=== PATIENT | male | born 1970 | race African-American/Black ===

== ENCOUNTER 2019-05-04 22:08 | Emergency (ER) | payer BC, MEDICAID ==
[~2019-05-04] VITALS: Ht 190.5 cm; Wt 205.3 kg
[2019-05-04] MEDS ORDERED: IBUPROFEN 200 MG TABLET ONE (22:53)
[2019-05-04] MEDS ORDERED: IBUPROFEN 800 MG TABLET PO ONE (23:00)
[2019-05-04 23:16] VITALS: BP 143/82
== END 2019-05-04 23:20 | disposition home or self-care (01) ==
LOC: ED 22:50
DX: S67.21XA Crushing injury of right hand, initial encounter (principal); X58.XXXA Exposure to other specified factors, initial encounter; Y93.89 Activity, other specified; Y92.410 Unspecified street and highway as the place of occurrence of the external cause; Y99.8 Other external cause status
CPT/HCPCS: 99283

== ENCOUNTER 2019-06-24 09:47 | Emergency (ER) | payer BC ==
[~2019-06-24] VITALS: Ht 190.5 cm; Wt 200.9 kg
[2019-06-24 10:12] VITALS: BP 144/81
== END 2019-06-24 11:58 | disposition home or self-care (01) ==
LOC: MERGE 11:52 → ED 11:52
DX: S83.91XA Sprain of unspecified site of right knee, initial encounter (principal); I10 Essential (primary) hypertension; Z87.891 Personal history of nicotine dependence; W19.XXXA Unspecified fall, initial encounter; Y93.89 Activity, other specified; Y92.009 Unspecified place in unspecified non-institutional (private) residence as the place of occurrence of the external cause; Y99.8 Other external cause status
CPT/HCPCS: 29505; 99283

== ENCOUNTER 2019-07-10 19:51 | Emergency (ER) | payer BC ==
[~2019-07-10] VITALS: Ht 190.5 cm; Wt 200.4 kg
[2019-07-10 21:26] VITALS: BP 116/76
== END 2019-07-10 21:29 | disposition home or self-care (01) ==
LOC: ED 20:34 → MERGE 20:34 → ED 21:29
DX: S70.02XA Contusion of left hip, initial encounter (principal); I10 Essential (primary) hypertension; Z87.891 Personal history of nicotine dependence; W21.11XA Struck by baseball bat, initial encounter; Y93.64 Activity, baseball; Y92.098 Other place in other non-institutional residence as the place of occurrence of the external cause; Y99.8 Other external cause status
CPT/HCPCS: 99283

== ENCOUNTER 2019-07-29 19:02 | Emergency (ER) | payer BC ==
[~2019-07-29] VITALS: Ht 190.5 cm; Wt 204.5 kg
[2019-07-29 19:08] VITALS: BP 172/87
== END 2019-07-29 20:35 | disposition home or self-care (01) ==
LOC: ED 20:19
DX: G89.11 Acute pain due to trauma (principal); M25.561 Pain in right knee; I10 Essential (primary) hypertension; Z72.9 Problem related to lifestyle, unspecified; Z75.9 Unspecified problem related to medical facilities and other health care; Y30.XXXA Falling, jumping or pushed from a high place, undetermined intent, initial encounter; Y93.89 Activity, other specified; Y92.89 Other specified places as the place of occurrence of the external cause; Y99.8 Other external cause status
CPT/HCPCS: 99283

== ENCOUNTER 2019-09-25 10:58 | Emergency (ER) | payer BC ==
[~2019-09-25] VITALS: Ht 190.5 cm; Wt 201.8 kg
[2019-09-25 11:02] VITALS: BP 168/93
[2019-09-25] MEDS ORDERED: HYDROcodone/APAP 5/325 TABLET PO ONE (11:30)
[2019-09-25] MEDS ORDERED: HYDROcodone/APAP 5/325 TABLET ONE (11:37)
[2019-09-25] MEDS ORDERED: NEOSPORIN OINT. PKT 1 PACKET ONE ×2 (11:39→12:09)
== END 2019-09-25 12:35 | disposition home or self-care (01) ==
LOC: ED 11:57
DX: S50.12XA Contusion of left forearm, initial encounter (principal); S50.02XA Contusion of left elbow, initial encounter; I10 Essential (primary) hypertension; W01.0XXA Fall on same level from slipping, tripping and stumbling without subsequent striking against object, initial encounter; Y93.89 Activity, other specified; Y92.009 Unspecified place in unspecified non-institutional (private) residence as the place of occurrence of the external cause; Y99.8 Other external cause status
CPT/HCPCS: 99283

== ENCOUNTER 2019-10-21 23:48 | Emergency (ER) | payer BC ==
[~2019-10-21] VITALS: Ht 188 cm; Wt 200.0 kg
[2019-10-22] MEDS ORDERED: DIAZEPAM 5 MG TABLET ONE (00:43)
[2019-10-22] MEDS ORDERED: IBUPROFEN 600 MG TABLET ONE (00:43)
[2019-10-22] MEDS ORDERED: HYDROcodone/APAP 5/325 TABLET ONE (00:44)
[2019-10-22 01:52] VITALS: BP 142/89
== END 2019-10-22 02:34 | disposition home or self-care (01) ==
LOC: ED 10-22 02:10
DX: S39.012A Strain of muscle, fascia and tendon of lower back, initial encounter (principal); S29.012A Strain of muscle and tendon of back wall of thorax, initial encounter; I10 Essential (primary) hypertension; X58.XXXA Exposure to other specified factors, initial encounter; Y93.89 Activity, other specified; Y92.89 Other specified places as the place of occurrence of the external cause; Y99.8 Other external cause status
CPT/HCPCS: 72128; 72131; 99284

== ENCOUNTER 2019-11-03 23:23 | Emergency (ER) | payer BC ==
[~2019-11-03] VITALS: Ht 190.5 cm; Wt 198.1 kg
[2019-11-03 23:25] VITALS: BP 148/85
[2019-11-04] MEDS ORDERED: IBUPROFEN 600 MG TABLET ONE
[2019-11-04] MEDS ORDERED: IBUPROFEN 200 MG TABLET PO ONE
== END 2019-11-04 00:06 | disposition home or self-care (01) ==
LOC: ED 23:58
DX: S20.211A Contusion of right front wall of thorax, initial encounter (principal); I10 Essential (primary) hypertension; Z87.891 Personal history of nicotine dependence; X58.XXXA Exposure to other specified factors, initial encounter; Y93.89 Activity, other specified; Y92.009 Unspecified place in unspecified non-institutional (private) residence as the place of occurrence of the external cause; Y99.8 Other external cause status
CPT/HCPCS: 99282

== ENCOUNTER 2019-11-08 23:40 | Emergency (ER) | payer BC ==
[~2019-11-08] VITALS: Ht 190.5 cm; Wt 199.3 kg
[2019-11-08 23:43] VITALS: BP 173/100
== END 2019-11-09 01:13 | disposition home or self-care (01) ==
LOC: ED 23:59
DX: S20.212A Contusion of left front wall of thorax, initial encounter (principal); I10 Essential (primary) hypertension; M19.90 Unspecified osteoarthritis, unspecified site; Z72.9 Problem related to lifestyle, unspecified; X58.XXXA Exposure to other specified factors, initial encounter; Y93.89 Activity, other specified; Y92.89 Other specified places as the place of occurrence of the external cause; Y99.8 Other external cause status
CPT/HCPCS: 99283

== ENCOUNTER 2019-11-28 20:54 | Emergency (ER) | payer BC ==
[~2019-11-28] VITALS: Ht 190.5 cm; Wt 199.3 kg
[2019-11-28 20:55] VITALS: BP 159/96
== END 2019-11-28 21:28 | disposition home or self-care (01) ==
LOC: ED 21:03
DX: S80.01XA Contusion of right knee, initial encounter (principal); E66.9 Obesity, unspecified; I10 Essential (primary) hypertension; Z72.9 Problem related to lifestyle, unspecified; Z72.89 Other problems related to lifestyle; X50.1XXA Overexertion from prolonged static or awkward postures, initial encounter; Y93.89 Activity, other specified; Y92.098 Other place in other non-institutional residence as the place of occurrence of the external cause; Y99.8 Other external cause status
CPT/HCPCS: 99281

== ENCOUNTER 2019-12-04 03:54 | Emergency (ER) | payer BC, OTHER ==
[~2019-12-04] VITALS: Ht 190.5 cm; Wt 198.7 kg
--- NOTE | 2019-12-04 04:16 | NUR ---
ERP at bedside to eval. Pt c/o glass in R heel. No obvious FB noted to heel.
--- NOTE | 2019-12-04 04:51 | NUR ---
Pt sleeping on elo
--- NOTE | 2019-12-04 05:47 | NUR ---
Pt alert and sitting up on gurney. Pt declines needs at this time.
[2019-12-04 06:01] VITALS: BP 138/88
== END 2019-12-04 06:02 | disposition home or self-care (01) ==
LOC: ED 04:07
DX: M79.671 Pain in right foot (principal); I10 Essential (primary) hypertension; Z87.891 Personal history of nicotine dependence
CPT/HCPCS: 99283

== ENCOUNTER 2019-12-12 14:44 | Emergency (ER) | payer OTHER ==
[~2019-12-12] VITALS: Ht 190.5 cm; Wt 199.4 kg
[2019-12-12 14:51] VITALS: BP 139/72
[2019-12-12] MEDS ORDERED: KETOROLAC 30 MG/1 ML IM ONE (15:30)
[2019-12-12] MEDS ORDERED: OXYcodone/APAP 5/325MG TABLET PO ONE (15:30)
[2019-12-12] MEDS ORDERED: KETOROLAC 30 MG/1 ML ONE (15:33)
[2019-12-12] MEDS ORDERED: OXYcodone/APAP 5/325MG TABLET ONE (15:33)
== END 2019-12-12 15:58 | disposition home or self-care (01) ==
LOC: ED 15:50
DX: S70.02XA Contusion of left hip, initial encounter (principal); I10 Essential (primary) hypertension; Z87.891 Personal history of nicotine dependence; X58.XXXA Exposure to other specified factors, initial encounter; Y93.89 Activity, other specified; Y92.009 Unspecified place in unspecified non-institutional (private) residence as the place of occurrence of the external cause; Y99.8 Other external cause status
CPT/HCPCS: 99283

== ENCOUNTER 2019-12-21 11:21 | Emergency (ER) | payer MEDICAID, OTHER ==
[~2019-12-21] VITALS: Ht 190.5 cm; Wt 189.3 kg
[2019-12-21 11:27] VITALS: BP 147/62
== END 2019-12-21 12:22 | disposition home or self-care (01) ==
LOC: ED 12:12
DX: S60.222A Contusion of left hand, initial encounter (principal); X58.XXXA Exposure to other specified factors, initial encounter; Y93.89 Activity, other specified; Y92.098 Other place in other non-institutional residence as the place of occurrence of the external cause; Y99.8 Other external cause status
CPT/HCPCS: 99283

== ENCOUNTER 2019-12-24 10:06 | Emergency (ER) | payer MEDICAID ==
[~2019-12-24] VITALS: Ht 190.5 cm; Wt 196.6 kg
[2019-12-24 10:38] VITALS: BP 156/82
[2019-12-24] MEDS ORDERED: KETOROLAC 30 MG/1 ML ONE (10:59)
[2019-12-24] MEDS ORDERED: KETOROLAC 30 MG/1 ML IM ONE (11:00)
== END 2019-12-24 11:55 | disposition home or self-care (01) ==
LOC: ED 11:40
DX: S86.111A Strain of other muscle(s) and tendon(s) of posterior muscle group at lower leg level, right leg, initial encounter (principal); J00 Acute nasopharyngitis [common cold]; I10 Essential (primary) hypertension; E66.9 Obesity, unspecified; Z87.891 Personal history of nicotine dependence; X58.XXXA Exposure to other specified factors, initial encounter; Y93.89 Activity, other specified; Y92.89 Other specified places as the place of occurrence of the external cause; Y99.8 Other external cause status
CPT/HCPCS: 71046; 99284

== ENCOUNTER 2019-12-26 10:12 | Emergency (ER) | payer MEDICAID ==
[~2019-12-26] VITALS: Ht 190.5 cm; Wt 198.9 kg
[2019-12-26 10:15] VITALS: BP 133/85
== END 2019-12-26 10:43 | disposition home or self-care (01) ==
LOC: ED 10:40
DX: I80.01 Phlebitis and thrombophlebitis of superficial vessels of right lower extremity (principal); E66.9 Obesity, unspecified
CPT/HCPCS: 99283

== ENCOUNTER 2020-01-01 12:06 | Emergency (ER) | payer MEDICAID ==
[~2020-01-01] VITALS: Ht 185.4 cm; Wt 118.0 kg
[2020-01-01 12:11] VITALS: BP 168/92
[2020-01-01] MEDS ORDERED: ACETAMINOPHEN 500 MG TABLET ONE ×2 (12:40→12:46)
[2020-01-01] MEDS ORDERED: LISI-167 PO (12:52)
[2020-01-01] MEDS ORDERED: GLUCOPHAGE (12:52)
--- NOTE | 2020-01-01 12:55 | NUR ---
Juliann martins in [facility] - 01/01/20 at 1305 by DERIK PT AT PROVIDER DESK, YELLING AND SWEARING AT PROVIDER. PT WAS ASKED TO RETURN TO HIS TREATMENT ROOM MULTIPLE TIMES.
[2020-01-01] MEDS ORDERED: ACETAMINOPHEN 500 MG TABLET PO ONE (13:00)
--- NOTE | 2020-01-01 13:03 | NUR ---
Juliann martins in ED - 01/01/20 at 1305 by DERIK SECURITY PRESENT. PT STANDING AT PROVIDER DESK. DC INSTRUCTIONS & SCRIPT PROVIDED.
== END 2020-01-01 14:01 | disposition home or self-care (01) ==
LOC: ED 12:22
DX: G89.11 Acute pain due to trauma (principal); M25.561 Pain in right knee; I10 Essential (primary) hypertension
CPT/HCPCS: 29505; 99283

== ENCOUNTER 2020-01-06 13:42 | Emergency (ER) | payer MEDICAID ==
[~2020-01-06] VITALS: Ht 190.5 cm; Wt 197.2 kg
[~2020-01-06 13:42] MED LIST: GLUCOPHAGE; LISI-167 PO
[2020-01-06 13:43] VITALS: BP 161/93
== END 2020-01-06 14:30 | disposition home or self-care (01) ==
LOC: ED 14:14
DX: M79.671 Pain in right foot (principal); I10 Essential (primary) hypertension; Z87.891 Personal history of nicotine dependence
CPT/HCPCS: 99283

== ENCOUNTER 2020-01-10 19:59 | Emergency (ER) | payer MEDICAID ==
[~2020-01-10] VITALS: Ht 190.5 cm; Wt 195.1 kg
[2020-01-10 20:10] VITALS: BP 171/101
== END 2020-01-10 22:27 | disposition home or self-care (01) ==
LOC: ED 21:32
DX: G89.11 Acute pain due to trauma (principal); M25.562 Pain in left knee; I10 Essential (primary) hypertension; W10.9XXA Fall (on) (from) unspecified stairs and steps, initial encounter; Y93.89 Activity, other specified; Y92.009 Unspecified place in unspecified non-institutional (private) residence as the place of occurrence of the external cause; Y99.8 Other external cause status
CPT/HCPCS: 99283

== ENCOUNTER 2020-01-22 22:09 | Emergency (ER) | payer MEDICAID ==
[~2020-01-22] VITALS: Ht 190.5 cm; Wt 203.0 kg
[2020-01-22 22:11] VITALS: BP 151/83
[2020-01-22] MEDS ORDERED: IBUPROFEN 600 MG TABLET PO ONE (22:30)
== END 2020-01-22 23:08 | disposition home or self-care (01) ==
LOC: ED 22:45
DX: S50.02XA Contusion of left elbow, initial encounter (principal); W23.1XXA Caught, crushed, jammed, or pinched between stationary objects, initial encounter; Y93.89 Activity, other specified; Y92.098 Other place in other non-institutional residence as the place of occurrence of the external cause; Y99.8 Other external cause status
CPT/HCPCS: 99283

== ENCOUNTER 2020-01-28 12:02 | Emergency (ER) | payer MEDICAID ==
[~2020-01-28] VITALS: Ht 190.5 cm; Wt 203.4 kg
[2020-01-28 12:05] VITALS: BP 138/74
--- NOTE | 2020-01-28 12:12 | NUR ---
PT. AMBULATORY TO ED 07 WITH STEADY GAIT.
--- NOTE | 2020-01-28 12:19 | NUR ---
PT. STATES HE DOESN'T WANT X-RAY, "MY BOSS JUST NEEDED ME TO GET IT CHECKED OUT." AWARE OF PLAN FOR ANUSHA WRAP AND D/C.
--- NOTE | 2020-01-28 12:23 | NUR ---
Juliann martins in [facility] - 01/28/20 at 1224 by NHILLAR PT REFUSE ANUSHA WRAP
--- NOTE | 2020-01-28 12:24 | NUR ---
PT REFUSE ANUSHA WRAP - PT Stated "I have my own at home"
== END 2020-01-28 12:28 | disposition home or self-care (01) ==
LOC: ED 12:22
DX: G89.11 Acute pain due to trauma (principal); M25.562 Pain in left knee; I10 Essential (primary) hypertension; X58.XXXA Exposure to other specified factors, initial encounter; Y93.89 Activity, other specified; Y92.89 Other specified places as the place of occurrence of the external cause; Y99.8 Other external cause status
CPT/HCPCS: 99282

== ENCOUNTER 2020-02-09 15:30 | Emergency (ER) | payer MEDICAID ==
[~2020-02-09] VITALS: Ht 190.5 cm; Wt 202.0 kg
[2020-02-09 15:32] VITALS: BP 150/80
== END 2020-02-09 16:15 | disposition home or self-care (01) ==
LOC: ED 16:00
DX: M17.11 Unilateral primary osteoarthritis, right knee (principal); I10 Essential (primary) hypertension; W01.0XXA Fall on same level from slipping, tripping and stumbling without subsequent striking against object, initial encounter; Y93.89 Activity, other specified; Y92.89 Other specified places as the place of occurrence of the external cause; Y99.8 Other external cause status
CPT/HCPCS: 99283

== ENCOUNTER 2020-02-12 11:59 | Emergency (ER) | payer MEDICAID ==
[~2020-02-12] VITALS: Ht 190.5 cm; Wt 205.8 kg
[2020-02-12 12:04] VITALS: BP 154/82
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
[2020-02-12] MEDS ORDERED: METHOCARBAMOL 750 MG TABLET PO ONE (12:30)
[2020-02-12] MEDS ORDERED: KETOROLAC 30 MG/1 ML IM ONE (12:30)
[2020-02-12] MEDS ORDERED: METHOCARBAMOL 750 MG TABLET ONE (12:32)
[2020-02-12] MEDS ORDERED: KETOROLAC 30 MG/1 ML ONE (12:32)
--- NOTE | 2020-02-12 13:12 | NUR ---
DISCHARGE INSTRUCTIONS REVIEWED
== END 2020-02-12 13:21 | disposition home or self-care (01) ==
LOC: ED 12:30
DX: S40.012A Contusion of left shoulder, initial encounter (principal); E11.9 Type 2 diabetes mellitus without complications; I10 Essential (primary) hypertension; X58.XXXA Exposure to other specified factors, initial encounter; Y93.89 Activity, other specified; Y92.009 Unspecified place in unspecified non-institutional (private) residence as the place of occurrence of the external cause; Y99.8 Other external cause status
CPT/HCPCS: 99283

== ENCOUNTER 2020-02-15 08:49 | Emergency (ER) | payer MEDICAID ==
[~2020-02-15] VITALS: Ht 190.5 cm; Wt 197.5 kg
[2020-02-15 08:50] VITALS: BP 159/90
--- NOTE | 2020-02-15 10:57 | NUR ---
PA TO BEDSIDE FOR ASSESSMENT. RAD BACK AT THIS TIME
[2020-02-15] MEDS ORDERED: IBUPROFEN 600 MG TABLET ONE (10:58)
[2020-02-15] MEDS ORDERED: IBUPROFEN 200 MG TABLET ONE (10:58)
[2020-02-15] MEDS ORDERED: IBUPROFEN 800 MG TABLET PO ONE (11:00)
--- NOTE | 2020-02-15 11:02 | NUR ---
PT MEDICATED PER MAR. CRUTCHES GIVEN WITH TEACHING BY TECH
== END 2020-02-15 11:07 | disposition home or self-care (01) ==
LOC: ED 11:00
DX: S76.212A Strain of adductor muscle, fascia and tendon of left thigh, initial encounter (principal); I10 Essential (primary) hypertension; E11.9 Type 2 diabetes mellitus without complications; Z87.891 Personal history of nicotine dependence; W18.30XA Fall on same level, unspecified, initial encounter; Y93.01 Activity, walking, marching and hiking; Y92.410 Unspecified street and highway as the place of occurrence of the external cause; Y99.8 Other external cause status
CPT/HCPCS: 72190; 99283

== ENCOUNTER 2020-02-19 19:20 | Emergency (ER) | payer MEDICAID, OTHER ==
[~2020-02-19] VITALS: Ht 190.5 cm; Wt 206.1 kg
[2020-02-19 19:23] VITALS: BP 161/84
== END 2020-02-19 21:09 | disposition home or self-care (01) ==
LOC: ED 21:07
DX: S39.012A Strain of muscle, fascia and tendon of lower back, initial encounter (principal); M51.36 Other intervertebral disc degeneration, lumbar region; V47.1XXA Car passenger injured in collision with fixed or stationary object in nontraffic accident, initial encounter; Y93.89 Activity, other specified; Y92.488 Other paved roadways as the place of occurrence of the external cause; Y99.8 Other external cause status
CPT/HCPCS: 72110; 99283

== ENCOUNTER 2020-02-24 16:20 | Emergency (ER) | payer MEDICAID, OTHER ==
[~2020-02-24] VITALS: Ht 190.5 cm; Wt 200.3 kg
[2020-02-24 16:23] VITALS: BP 142/85
--- NOTE | 2020-02-24 17:48 | NUR ---
METALS ANALYST: PT TO ROOM FROM TONIO BOYD
== END 2020-02-24 19:40 | disposition home or self-care (01) ==
LOC: ED 17:52
DX: S50.12XA Contusion of left forearm, initial encounter (principal); W19.XXXA Unspecified fall, initial encounter; Y93.89 Activity, other specified; Y92.098 Other place in other non-institutional residence as the place of occurrence of the external cause; Y99.8 Other external cause status
CPT/HCPCS: 99283

== ENCOUNTER 2020-03-02 18:07 | Emergency (ER) | payer MEDICAID ==
[~2020-03-02] VITALS: Ht 190.5 cm; Wt 206.0 kg
[2020-03-02 18:10] VITALS: BP 150/76
--- NOTE | 2020-03-02 18:34 | NUR ---
Pt sitting up on gurney, NAD, denies additional needs at this time, call light within reach, even and unlabored respirations, WCTM.
--- NOTE | 2020-03-02 18:54 | NUR ---
Bedside report given to Hanna GRUBER, pt care transferred at this time.
--- NOTE | 2020-03-02 19:01 | NUR ---
Discharge instructions given. All questions and concerns addressed. Patient ambulatory with a steady gait. Belongings with patient.
== END 2020-03-02 19:02 | disposition home or self-care (01) ==
LOC: ED 18:51
DX: S60.032A Contusion of left middle finger without damage to nail, initial encounter (principal); S60.042A Contusion of left ring finger without damage to nail, initial encounter; I10 Essential (primary) hypertension; M19.90 Unspecified osteoarthritis, unspecified site; E11.9 Type 2 diabetes mellitus without complications; Z87.891 Personal history of nicotine dependence; W23.0XXA Caught, crushed, jammed, or pinched between moving objects, initial encounter; Y93.89 Activity, other specified; Y92.89 Other specified places as the place of occurrence of the external cause; Y99.8 Other external cause status
CPT/HCPCS: 99283

== ENCOUNTER 2020-03-04 23:38 | Emergency (ER) | payer MEDICAID ==
[~2020-03-04] VITALS: Ht 190.5 cm; Wt 206.2 kg
[2020-03-05 00:21] VITALS: BP 125/74
== END 2020-03-05 00:23 | disposition home or self-care (01) ==
LOC: ED 23:50
DX: S83.91XA Sprain of unspecified site of right knee, initial encounter (principal); I10 Essential (primary) hypertension; E66.9 Obesity, unspecified; X50.1XXA Overexertion from prolonged static or awkward postures, initial encounter; Y93.01 Activity, walking, marching and hiking; Y92.410 Unspecified street and highway as the place of occurrence of the external cause; Y99.8 Other external cause status
CPT/HCPCS: 99281

== ENCOUNTER 2020-03-13 19:39 | Emergency (ER) | payer MEDICAID ==
[~2020-03-13] VITALS: Ht 190.5 cm; Wt 207.9 kg
[2020-03-13 19:41] VITALS: BP 150/82
--- NOTE | 2020-03-13 20:15 | NUR ---
RELAY CHECKER: PT AMBULATORY TO ROOM FROM LOBBY, STEADY GAIT NOTED
--- NOTE | 2020-03-13 21:17 | NUR ---
DC EDUCATION PROVIDED, PT DEMONSTRATES UNDERSTANDING. PT AMBULATED STEADILY TO DC WITH RN.
== END 2020-03-13 21:20 | disposition home or self-care (01) ==
LOC: ED 20:46
DX: G89.11 Acute pain due to trauma (principal); M25.572 Pain in left ankle and joints of left foot; Z72.9 Problem related to lifestyle, unspecified; E11.9 Type 2 diabetes mellitus without complications; I10 Essential (primary) hypertension; M19.90 Unspecified osteoarthritis, unspecified site; E66.01 Morbid (severe) obesity due to excess calories; Z68.43 Body mass index [BMI] 50.0-59.9, adult; X50.0XXA Overexertion from strenuous movement or load, initial encounter; Y93.89 Activity, other specified; Y92.009 Unspecified place in unspecified non-institutional (private) residence as the place of occurrence of the external cause; Y99.8 Other external cause status
CPT/HCPCS: 99281

== ENCOUNTER 2020-03-16 16:34 | Emergency (ER) | payer MEDICAID ==
[~2020-03-16] VITALS: Ht 190.5 cm; Wt 202.0 kg
[2020-03-16 16:37] VITALS: BP 153/80
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
--- NOTE | 2020-03-16 17:27 | NUR ---
RN PROVIDED PT WITH ICE PACK PER ERMD REQUEST. ERMD TO PUT IN ORDERS FOR MEDICATION.
[2020-03-16] MEDS ORDERED: HYDROcodone/APAP 5/325 TABLET PO ONE (17:30)
[2020-03-16] MEDS ORDERED: HYDROcodone/APAP 5/325 TABLET ONE (17:31)
--- NOTE | 2020-03-16 17:41 | NUR ---
PT DC HOME IN A STABLE CONDITION. DC INSTRUCTIONS WERE DISCUSSED WITH PT. PT VERBALIZED UNDERSTANDING. NO FURTHER QUESTIONS OR CONCERNS EXPRESSED AT THAT TIME. PT AMBULATED WITH RN TO DC DESK. STEADY GAIT.
== END 2020-03-16 17:43 | disposition home or self-care (01) ==
LOC: ED 17:34
DX: S30.0XXA Contusion of lower back and pelvis, initial encounter (principal); I10 Essential (primary) hypertension; E11.9 Type 2 diabetes mellitus without complications; Z86.718 Personal history of other venous thrombosis and embolism; Z87.891 Personal history of nicotine dependence; Y04.8XXA Assault by other bodily force, initial encounter; Y93.89 Activity, other specified; Y92.488 Other paved roadways as the place of occurrence of the external cause; Y99.8 Other external cause status
CPT/HCPCS: 99283

== ENCOUNTER 2020-03-24 12:13 | Emergency (ER) | payer MEDICAID ==
[~2020-03-24] VITALS: Ht 190.5 cm; Wt 202.4 kg
[2020-03-24 12:18] VITALS: BP 163/91
--- NOTE | 2020-03-24 12:55 | NUR ---
PT TO ROOM FROM LOBBY AT THIS TIME.
[2020-03-24] MEDS ORDERED: IBUPROFEN 800 MG TABLET ONE (13:22)
[2020-03-24] MEDS ORDERED: IBUPROFEN 800 MG TABLET PO ONE (13:30)
== END 2020-03-24 14:00 | disposition home or self-care (01) ==
LOC: ED 13:26
DX: S39.012A Strain of muscle, fascia and tendon of lower back, initial encounter (principal); I10 Essential (primary) hypertension; E11.8 Type 2 diabetes mellitus with unspecified complications; E66.9 Obesity, unspecified; Z86.718 Personal history of other venous thrombosis and embolism; Z68.43 Body mass index [BMI] 50.0-59.9, adult; X58.XXXA Exposure to other specified factors, initial encounter; Y93.89 Activity, other specified; Y92.89 Other specified places as the place of occurrence of the external cause; Y99.8 Other external cause status
CPT/HCPCS: 99282

== ENCOUNTER 2020-04-01 15:37 | Emergency (ER) | payer MEDICAID ==
[~2020-04-01] VITALS: Ht 190.5 cm; Wt 199.0 kg
[2020-04-01 15:56] VITALS: BP 147/87
--- NOTE | 2020-04-01 16:20 | NUR ---
To room from lobby at 1614 with steady gait w/out any deficits To radiology at 1617
--- NOTE | 2020-04-01 16:29 | NUR ---
NO TRAUMA NOTED TO BACK OF HEAD, DENIES NECK PAIN. ABLE TO MOVE NECK IN ALL DIRECTIONS EASILLY
[2020-04-01] MEDS ORDERED: IBUPROFEN 600 MG TABLET ONE (17:59)
[2020-04-01] MEDS ORDERED: IBUPROFEN 600 MG TABLET PO ONE (18:00)
== END 2020-04-01 18:10 | disposition home or self-care (01) ==
LOC: ED 16:21
DX: S09.90XA Unspecified injury of head, initial encounter (principal); G89.11 Acute pain due to trauma; M25.562 Pain in left knee; R94.31 Abnormal electrocardiogram [ECG] [EKG]; E11.9 Type 2 diabetes mellitus without complications; I10 Essential (primary) hypertension; M19.90 Unspecified osteoarthritis, unspecified site; Z87.891 Personal history of nicotine dependence; W01.0XXA Fall on same level from slipping, tripping and stumbling without subsequent striking against object, initial encounter; Y93.89 Activity, other specified; Y92.098 Other place in other non-institutional residence as the place of occurrence of the external cause; Y99.8 Other external cause status
CPT/HCPCS: 70450; 93005; 99285

== ENCOUNTER 2020-04-08 21:14 | Emergency (ER) | payer MEDICAID ==
[~2020-04-08] VITALS: Ht 190.5 cm; Wt 210.9 kg
[2020-04-08 21:21] VITALS: BP 135/65
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
[2020-04-08] MEDS ORDERED: IBUPROFEN 600 MG TABLET PO ONE (22:00)
[2020-04-08] MEDS ORDERED: IBUPROFEN 600 MG TABLET ONE (22:03)
== END 2020-04-08 22:10 | disposition home or self-care (01) ==
LOC: ED 22:08
DX: S50.02XA Contusion of left elbow, initial encounter (principal); I10 Essential (primary) hypertension; E11.9 Type 2 diabetes mellitus without complications; Z86.718 Personal history of other venous thrombosis and embolism; Z86.711 Personal history of pulmonary embolism; Z87.891 Personal history of nicotine dependence; X58.XXXA Exposure to other specified factors, initial encounter; Y93.89 Activity, other specified; Y92.89 Other specified places as the place of occurrence of the external cause; Y99.8 Other external cause status
CPT/HCPCS: 99282

== ENCOUNTER 2020-04-14 22:41 | Emergency (ER) | payer MEDICAID ==
[~2020-04-14] VITALS: Ht 190.5 cm; Wt 201.0 kg
[2020-04-14 22:43] VITALS: BP 157/81
== END 2020-04-15 00:21 | disposition home or self-care (01) ==
LOC: ED 23:59
DX: S93.431A Sprain of tibiofibular ligament of right ankle, initial encounter (principal); I10 Essential (primary) hypertension; E11.9 Type 2 diabetes mellitus without complications; Z86.718 Personal history of other venous thrombosis and embolism; W22.8XXA Striking against or struck by other objects, initial encounter; Y93.89 Activity, other specified; Y92.410 Unspecified street and highway as the place of occurrence of the external cause; Y99.8 Other external cause status
CPT/HCPCS: 99283

== ENCOUNTER 2020-04-20 03:52 | Emergency (ER) | payer MEDICAID ==
[~2020-04-20] VITALS: Ht 190.5 cm; Wt 211.2 kg
--- NOTE | 2020-04-20 04:04 | NUR ---
PT AMBULATED BACK TO ROOM WITH A SMOOTH AND STEADY GAIT. NAD, SKIN COLOR WNL FOR ETHNICITY WARM AND DRY, [employer] INTACT, MA[employer], [employer]. WCTM. CALL LIGHT ON LAP, WAITING FOR PROVIDER EVAL.
--- NOTE | 2020-04-20 04:24 | NUR ---
pt resting in gurney, placed on NC 2L due to O2 sat at 89%, satting at 94% now. Pt NAD, skin color WNL warm and dry, call light on lap. lights dimmed for pt comfort, waiting for rad results. WCTM.
[2020-04-20 05:26] VITALS: BP 140/57
--- NOTE | 2020-04-20 05:26 | NUR ---
pt resting in gurney, placed on SIMPLE MASK 8L due to O2 sat at 88%, satting at 96% now. Pt NAD, skin color WNL warm and dry, call light on lap. lights dimmed for pt comfort, waiting for rad results. WCTM.
--- NOTE | 2020-04-20 05:53 | NUR ---
Patient/Caregiver given discharge instructions and they have confirmed that they understand the instructions. Patient ambulatory with steady gait. PT DENIES ADDITIONAL QUESTIONS AT THIS TIME. NAD, RESP WNL, SKIN WNL WARM AND DRY.
== END 2020-04-20 05:55 | disposition home or self-care (01) ==
LOC: ED 04:16
DX: S60.222A Contusion of left hand, initial encounter (principal); I10 Essential (primary) hypertension; E11.9 Type 2 diabetes mellitus without complications; Z86.718 Personal history of other venous thrombosis and embolism; E66.9 Obesity, unspecified; Z68.43 Body mass index [BMI] 50.0-59.9, adult; W23.1XXA Caught, crushed, jammed, or pinched between stationary objects, initial encounter; Y93.89 Activity, other specified; Y92.098 Other place in other non-institutional residence as the place of occurrence of the external cause; Y99.8 Other external cause status
CPT/HCPCS: 99283

== ENCOUNTER 2020-04-29 15:34 | Emergency (ER) | payer MEDICAID ==
[~2020-04-29] VITALS: Ht 190.5 cm; Wt 210.0 kg
[2020-04-29 15:42] VITALS: BP 163/92
[2020-04-29] MEDS ORDERED: IBUPROFEN 800 MG TABLET ONE (15:59)
[2020-04-29] MEDS ORDERED: METHOCARBAMOL 750 MG TABLET ONE (15:59)
[2020-04-29] MEDS ORDERED: METHOCARBAMOL 750 MG TABLET PO ONE (16:00)
[2020-04-29] MEDS ORDERED: IBUPROFEN 800 MG TABLET PO ONE (16:00)
--- NOTE | 2020-04-29 16:05 | NUR ---
PT MEDICATED PER EMAR. PT TOLERATED WELL.
--- NOTE | 2020-04-29 16:48 | NUR ---
Patient given discharge instructions and they have confirmed that they understand the instructions. Patient ambulatory with steady gait.
== END 2020-04-29 16:49 | disposition home or self-care (01) ==
LOC: ED 16:02
DX: S39.012A Strain of muscle, fascia and tendon of lower back, initial encounter (principal); E11.9 Type 2 diabetes mellitus without complications; I10 Essential (primary) hypertension; Z86.718 Personal history of other venous thrombosis and embolism; W01.0XXA Fall on same level from slipping, tripping and stumbling without subsequent striking against object, initial encounter; Y93.89 Activity, other specified; Y92.89 Other specified places as the place of occurrence of the external cause; Y99.8 Other external cause status
CPT/HCPCS: 99283

== ENCOUNTER 2020-05-06 22:58 | Emergency (ER) | payer MEDICAID ==
[~2020-05-06] VITALS: Ht 190.5 cm; Wt 210.1 kg
[2020-05-06 23:02] VITALS: BP 144/81
== END 2020-05-06 23:31 | disposition home or self-care (01) ==
LOC: ED 23:28
DX: S60.222A Contusion of left hand, initial encounter (principal); E66.01 Morbid (severe) obesity due to excess calories; Z68.43 Body mass index [BMI] 50.0-59.9, adult; X58.XXXA Exposure to other specified factors, initial encounter; Y93.89 Activity, other specified; Y92.009 Unspecified place in unspecified non-institutional (private) residence as the place of occurrence of the external cause; Y99.8 Other external cause status
CPT/HCPCS: 99281

== ENCOUNTER 2020-05-27 13:40 | Emergency (ER) | payer MEDICAID ==
[~2020-05-27] VITALS: Ht 190.5 cm; Wt 208.0 kg
[2020-05-27 13:43] VITALS: BP 150/77
--- NOTE | 2020-05-27 14:25 | NUR ---
DIRECTOR OF MARKETING OPERATIONS: PT AMBULATORY WITH STEADY GAIT TO ROOM AT THIS TIME. AURY
== END 2020-05-27 15:21 | disposition home or self-care (01) ==
LOC: ED 15:10
DX: S90.02XA Contusion of left ankle, initial encounter (principal); I10 Essential (primary) hypertension; E11.9 Type 2 diabetes mellitus without complications; X58.XXXA Exposure to other specified factors, initial encounter; Y93.89 Activity, other specified; Y92.098 Other place in other non-institutional residence as the place of occurrence of the external cause; Y99.8 Other external cause status
CPT/HCPCS: 29515; 99284

== ENCOUNTER 2020-06-08 09:53 | Emergency (ER) | payer MEDICAID ==
[~2020-06-08] VITALS: Ht 190.5 cm; Wt 206.2 kg
[2020-06-08 10:00] VITALS: BP 116/83
--- NOTE | 2020-06-08 10:06 | NUR ---
pt ambulated to room from lobby with a steady gait.
[2020-06-08] MEDS ORDERED: LOSA100T14 PO (10:11)
[2020-06-08] MEDS ORDERED: METO25TA35 PO (10:11)
[2020-06-08] MEDS ORDERED: HYDROCHLOROTH12.5 MG PO (10:11)
[2020-06-08] MEDS ORDERED: ASPI-614 PO (10:11)
[2020-06-08] MEDS ORDERED: ATOR40TA78 PO (10:11)
[2020-06-08] MEDS ORDERED: OXYcodone/APAP 10/325MG TABLET ONE (10:23)
--- NOTE | 2020-06-08 10:27 | NUR ---
pt medicated per order. awaiting imaging. cvall light in reach. nadn.
[2020-06-08] MEDS ORDERED: OXYcodone/APAP 10/325MG TABLET PO ONE (10:30)
--- NOTE | 2020-06-08 10:50 | NUR ---
pt back from x ray
--- NOTE | 2020-06-08 11:51 | NUR ---
PT REFUSING KNEE IMMOBILIZER. STATES HE HAS ONE AT HOME. PT AGREES TO CRUTCHES. MADE AWARE.
== END 2020-06-08 12:07 | disposition home or self-care (01) ==
LOC: ED 10:02
DX: S83.511A Sprain of anterior cruciate ligament of right knee, initial encounter (principal); X50.1XXA Overexertion from prolonged static or awkward postures, initial encounter; Y93.89 Activity, other specified; Y92.098 Other place in other non-institutional residence as the place of occurrence of the external cause; Y99.8 Other external cause status
CPT/HCPCS: 99283

== ENCOUNTER 2020-07-18 12:28 | Emergency (ER) | payer MEDICAID ==
[~2020-07-18] VITALS: Ht 190.5 cm; Wt 202.3 kg
[~2020-07-18 12:28] MED LIST changes: +ASPI-614 PO; +ATOR40TA78 PO; +HYDROCHLOROTH12.5 MG PO; +LOSA100T14 PO; +METO25TA35 PO
--- NOTE | 2020-07-18 12:50 | NUR ---
to room at this time.
[2020-07-18] MEDS ORDERED: HYDROcodone/APAP 5/325 TABLET PO ONE (13:30)
[2020-07-18] MEDS ORDERED: HYDROcodone/APAP 5/325 TABLET ONE (14:43)
[2020-07-18 15:11] LABS: BASOPHILS # (AUTO) 0.04 x10^3/uL (0-0.1); BASOPHILS % (AUTO) 0 % (0-1); EOSINOPHILS # (AUTO) 0.12 x10^3/uL (0-0.4); EOSINOPHILS % (AUTO) 1 % (1-7); LYMPHOCYTES # (AUTO) 2.05 x10^3/uL (1-3.4); LYMPHOCYTES % (AUTO) 20 % (22-44); MD NO; MEAN CORPUSCULAR HEMOGLOBIN 25.1 pg (27.5-34.5); MEAN CORPUSCULAR HGB CONC 31.4 g/dL (33.2-36.2); MEAN PLATELET VOLUME 8.2 fL (7.4-10.4); MONOCYTES # (AUTO) 0.61 x10^3/uL (0.2-0.8); MONOCYTES % (AUTO) 6 % (2-9); NEUTROPHILS # (AUTO) 7.34 x10^3/uL (1.8-6.8); NEUTROPHILS % (AUTO) 72 % (42-75); PLATELET COUNT 422 x10^3/uL (130-400); RED BLOOD COUNT 5.98 x10^6/uL (4.38-5.82)
[2020-07-18 15:15] LABS: ALANINE AMINOTRANSFERASE 27 U/L (12-78); ALBUMIN 3.2 g/dL (3.4-5.0); ANION GAP 1 mmol/L (5-15); CALCIUM 8.5 mg/dL (8.5-10.1); CHLORIDE 104 mmol/L (98-107); CREATININE 1.21 mg/dL (0.7-1.3)
[2020-07-18 15:18] LABS: ALKALINE PHOSPHATASE 47 U/L (45-117); BILIRUBIN,TOTAL 0.8 mg/dL (0.2-1.0); TOTAL PROTEIN 8.1 g/dL (6.4-8.2)
--- NOTE | 2020-07-18 15:46 | NUR ---
WITH REASSESSMENT LEFT KNEE PAIN IMPROVED TO 5/10 POST MEDICATION CMS REMAINS INTACT PATIENT ASKING TO GO HOME-PROVIDER MOUNA MAYO
[2020-07-18 16:56] VITALS: BP 146/75
== END 2020-07-18 16:53 | disposition home or self-care (01) ==
LOC: ED 12:56
DX: S83.92XA Sprain of unspecified site of left knee, initial encounter (principal); I10 Essential (primary) hypertension; E11.9 Type 2 diabetes mellitus without complications; E66.9 Obesity, unspecified; Z68.43 Body mass index [BMI] 50.0-59.9, adult; W01.0XXA Fall on same level from slipping, tripping and stumbling without subsequent striking against object, initial encounter; Y93.89 Activity, other specified; Y92.89 Other specified places as the place of occurrence of the external cause; Y99.8 Other external cause status
CPT/HCPCS: 36415; 80053; 85025; 99285

== ENCOUNTER 2020-08-02 06:24 | Emergency (ER) | payer MEDICAID ==
[~2020-08-02] VITALS: Ht 190.5 cm; Wt 207.0 kg
--- NOTE | 2020-08-02 07:28 | NUR ---
DIVISION HEAD: PT TO ROOM FROM TONIO BOYD
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
[2020-08-02] MEDS ORDERED: KETOROLAC 30 MG/1 ML IM ONE (08:00)
[2020-08-02] MEDS ORDERED: KETOROLAC 30 MG/1 ML ONE (08:16)
--- NOTE | 2020-08-02 08:19 | NUR ---
US AT BEDSIDE. IN TO MEDICATE PT WITH TORADOL, PT REFUSED. STATED "NO SHOTS". NOTIFIED PA OF PT REFUSAL OF PAIN MED. PAIN 8/10 IN THE LEFT KNEE. CALL LIGHT IN REACH, FALL PRECAUTIONS IN PLACE.
--- NOTE | 2020-08-02 08:58 | NUR ---
PT UP FOR RECHECK
--- NOTE | 2020-08-02 09:07 | NUR ---
MARY MCBRIDE AT BEDSIDE FOR RECHECK
--- NOTE | 2020-08-02 09:40 | NUR ---
AWAITING CHART AND DISCHARGE PAPERS FROM ERP.
--- NOTE | 2020-08-02 09:55 | NUR ---
PT GIVEN CRUTCH USE DEMO, FITTED TO PT, RETURN DEMONSTRATED PROPER CRUTC USE, AMBULATED WITH STEADY GAIT WITH CRUTCHES.
[2020-08-02 10:06] VITALS: BP 137/79
== END 2020-08-02 10:12 | disposition home or self-care (01) ==
LOC: ED 07:14
DX: G89.29 Other chronic pain (principal); M25.562 Pain in left knee; M79.89 Other specified soft tissue disorders; E66.9 Obesity, unspecified; Z68.43 Body mass index [BMI] 50.0-59.9, adult; W01.0XXA Fall on same level from slipping, tripping and stumbling without subsequent striking against object, initial encounter; Y93.89 Activity, other specified; Y92.098 Other place in other non-institutional residence as the place of occurrence of the external cause; Y99.8 Other external cause status
CPT/HCPCS: 99284

== ENCOUNTER 2020-09-16 05:09 | Emergency (ER) | payer MEDICAID ==
[~2020-09-16] VITALS: Ht 190.5 cm; Wt 202.8 kg
[2020-09-16 05:12] VITALS: BP 146/98
--- NOTE | 2020-09-16 07:10 | NUR ---
report received from ainsley cardenas.
--- NOTE | 2020-09-16 08:18 | NUR ---
Patient given discharge instructions and they have confirmed that they understand the instructions. Patient ambulatory with steady gait.
== END 2020-09-16 08:19 | disposition home or self-care (01) ==
LOC: ED 05:30
DX: M17.11 Unilateral primary osteoarthritis, right knee (principal); G89.11 Acute pain due to trauma; M25.561 Pain in right knee; I10 Essential (primary) hypertension; M19.90 Unspecified osteoarthritis, unspecified site; E11.9 Type 2 diabetes mellitus without complications; Z86.718 Personal history of other venous thrombosis and embolism; X50.1XXA Overexertion from prolonged static or awkward postures, initial encounter; Y93.01 Activity, walking, marching and hiking; Y92.89 Other specified places as the place of occurrence of the external cause; Y99.8 Other external cause status
CPT/HCPCS: 99283

== ENCOUNTER 2020-11-30 06:02 | Emergency (ER) | payer MEDICAID ==
[~2020-11-30] VITALS: Ht 190.5 cm; Wt 200.4 kg
[2020-11-30 06:32] VITALS: BP 134/89
--- NOTE | 2020-11-30 06:42 | NUR ---
PT ROLLED RT ANKLE WHILE WALKING WELL HAS A COUGH HE WANT EVAL FOR HAS HX LOW 02 SAT....
--- NOTE | 2020-11-30 06:45 | NUR ---
FORREST GIVEN REPORT
--- NOTE | 2020-11-30 07:05 | NUR ---
PT BACK FROM XRAY
--- NOTE | 2020-11-30 07:39 | NUR ---
PT RESTING COMFORTABLY ON GURNEY WITH CELL PHONE IN HAND, DELFIN.
--- NOTE | 2020-11-30 09:51 | NUR ---
PT REC'VD DISCHARGE EDUCATION AND ISTRUCTIONS. PT HAD NO QUESTIONS. AIR SPLINT IN PLACE ON PT'S RIGHT ANKLE. PT AMBULATED TO [facility], STEADY GAIT.
== END 2020-11-30 09:54 | disposition home or self-care (01) ==
LOC: ED 07:14
DX: U07.1 COVID-19 (principal); S93.491A Sprain of other ligament of right ankle, initial encounter; J06.9 Acute upper respiratory infection, unspecified; R06.02 Shortness of breath; I10 Essential (primary) hypertension; E11.9 Type 2 diabetes mellitus without complications; M19.90 Unspecified osteoarthritis, unspecified site; E66.9 Obesity, unspecified; Z68.43 Body mass index [BMI] 50.0-59.9, adult; Z86.718 Personal history of other venous thrombosis and embolism; X58.XXXA Exposure to other specified factors, initial encounter; Y93.89 Activity, other specified; Y92.89 Other specified places as the place of occurrence of the external cause; Y99.8 Other external cause status
CPT/HCPCS: 71045; 87635; 99284

== ENCOUNTER 2021-07-08 10:37 | Emergency (ER) | payer MEDICAID ==
[~2021-07-08] VITALS: Ht 190.5 cm; Wt 208.9 kg
--- NOTE | 2021-07-08 10:45 | NUR ---
EKG IN ROOM
[2021-07-08 12:21] LABS: BASOPHILS % (AUTO) 1 % (0-1); EOSINOPHILS % (AUTO) 2 % (1-7); LYMPHOCYTES % (AUTO) 20 % (22-44); MEAN CORPUSCULAR HEMOGLOBIN 24.6 pg (27.5-34.5); MEAN CORPUSCULAR HGB CONC 31.4 g/dL (33.2-36.2); MEAN PLATELET VOLUME 7.5 fL (7.4-10.4); MONOCYTES % (AUTO) 6 % (2-9); NEUTROPHILS % (AUTO) 71 % (42-75); PLATELET COUNT 400 x10^3/uL (130-400); RED BLOOD COUNT 5.72 x10^6/uL (4.38-5.82); RED CELL DISTRIBUTION WIDTH 19.1 % (9.4-14.8)
[2021-07-08 12:33] LABS: ALBUMIN 2.9 g/dL (3.4-5.0); CALCIUM 8.2 mg/dL (8.5-10.1)
[2021-07-08 12:39] LABS: CREATININE 1.23 mg/dL (0.7-1.3); TROPONIN I < 0.015 ng/mL (0.000-0.045)
[2021-07-08 12:41] LABS: ANION GAP 3 mmol/L (5-15); CHLORIDE 104 mmol/L (98-107)
[2021-07-08 14:24] VITALS: BP 149/89
== END 2021-07-08 14:26 | disposition home or self-care (01) ==
LOC: ED 12:53
DX: J12.9 Viral pneumonia, unspecified (principal); R94.31 Abnormal electrocardiogram [ECG] [EKG]; I10 Essential (primary) hypertension; E11.9 Type 2 diabetes mellitus without complications; M19.90 Unspecified osteoarthritis, unspecified site; E66.9 Obesity, unspecified; Z68.43 Body mass index [BMI] 50.0-59.9, adult; Z86.718 Personal history of other venous thrombosis and embolism
CPT/HCPCS: 36415; 71046; 80048; 82040; 83880; 84484; 85025; 93005; 99285